=== PATIENT | female | born 1960 | race Caucasian/White ===

== ENCOUNTER 2018-08-11 00:22 | Emergency (ER) | payer OTHER, SELFPAY ==
[2018-08-11 00:25] VITALS: BP 128/85; PULSE 79; RESP 14; TEMP 36.8; O2SAT 98; BMI 19.8
--- NOTE | 2018-08-11 00:34 | DI.RAD.S_ITS ---
PROCEDURE: XR FOOT RT MIN 3V INDICATIONS: pain, swelling, ecchymosis over lateral foot TECHNIQUE: 3 views of the foot were acquired. COMPARISON: None. FINDINGS: Bones: There is an acute appearing fracture fragment seen adjacent to the cuboid laterally. No additional focal bony abnormality is seen. Age-appropriate bony degenerative changes are seen. No suspicious lytic or blastic lesions are seen. A plantar calcaneal spur is seen. Soft tissues: No tibiotalar joint effusion. Achilles tendon appears normal. IMPRESSION: Mildly displaced fracture of the cuboid. Please consider a dedicated CT for further evaluation. Note: No significant discrepancy from the preliminary report. Dictated by: Jose Cruz Martins M.D. on 08/11/2018 at 8:37 Approved by: Jose Cruz Martins M.D. on 08/11/2018 at 8:38
[2018-08-11 00:41] VITALS: PULSE 79
--- NOTE | 2018-08-11 00:47 | ED_ITS ---
HPI - Extremity Injury (Lower) General Chief Complaint: Extremity Injury, Lower Stated Complaint: Rt foot buckled under her she heard a snap Time Seen by Provider: 08/11/18 00:24 Source: patient and family Mode of arrival: wheelchair Limitations: no limitations History of Present Illness HPI Narrative: 57-year-old female nonsmoker with noncontributory medical history presents with her in the chief complaint right foot pain. Earlier tonight she states her foot fell asleep and when she stood up to walk she thinks she inverted that foot and she felt a pop and now has pain with ambulation. She was seen and evaluated by the system administration manager out on [facility] and placed in a splint, and encouraged to CS for evaluation. She did not fall and denies other injury as a consequence of this MD complaint: foot injury Onset (ago): hour(s) Type of Injury: inversion Place: home Severity: moderate Relieving factors: immobilization and rest Exacerbating factors: weight bearing and movement Context: walking Associated symptoms: snap/pop sensation and swelling Other symptoms: none Treatments prior to arrival: cold therapy, bandage and splint Review of Systems Constitutional Denies chills, Denies fever(s), Denies lethargy and Denies weakness Eyes Denies change in vision, Denies eye discharge, Denies irritation and Denies loss of vision ENT Ears, Nose, Mouth, and Throat: Denies change in voice, Denies neck pain and Denies sore throat Cardiovascular Denies chest pain, Denies irregular heart rhythm, Denies lightheadedness, Denies palpitations, Denies dyspnea, Denies dyspnea on exertion and Denies orthopnea Respiratory Denies cough, Denies dyspnea, Denies dyspnea on exertion and Denies wheezing Gastrointestinal Gastrointestinal: Denies abdominal pain, Denies change in bowel habits, Denies diarrhea, Denies nausea and Denies vomiting Genitourinary Denies hematuria, Denies flank pain, Denies urinary incontinence and Denies urinary urgency Musculoskeletal Reports limited range of motion and Denies neck pain Integumentary/Breasts Denies pruritus, Denies erythema, Denies rash and Denies wounds Neurologic Denies confusion, Denies loss of vision and Denies weakness Psychiatric Denies anxiety, Denies confusion, Denies depression, Denies homicidal ideation and Denies suicidal ideation Endocrine Denies palpitations Hematologic/Lymphatic Denies easy bruising Allergic/Immunologic Denies wheezing PFSH Social History Smoking Status: Never smoker Social History Smoking Status: Never smoker Exam Narrative Exam Narrative: GEN: AOx3 and in mild distress EYES: Pupils are equal, round, and reactive to light and accommodation. Extraoccular muscles are intact bilaterally. There is no subconjunctival hemorrhage or exudate. CHEST: Lungs are clear to auscultation bilaterally and free of wheezes, rales, or rhonchi. Heart rate is regular rhythm, there are no murmurs, clicks, rubs, or gallops. There is no chest wall tenderness. ABD: Abdomen is soft and nontender. There is no guarding or rebound. Bowel sounds are normal in all 4 quadrants. There is no mass or organomegaly. EXT: 2 x 3 cm area of swelling and ecchymosis on right lateral foot just medial to the 5th metatarsal. There is no pain or tenderness the lateral malleolus Full painless ROM of all extremities with no loss of sensation or strength. SKIN: Warm, pink, and dry. No erythema or rash Initial Vital Signs Initial Vital Signs: Vital Signs Temperature 98.2 F 08/11/18 00:25 Pulse Rate 79 08/11/18 00:25 Respiratory Rate 14 08/11/18 00:25 Blood Pressure 128/85 08/11/18 00:25 Pulse Oximetry 98 08/11/18 00:25 Procedures Orthopedic Splinting/Casting Injury #1: Side: right Lower Extremity Injury Location: foot Lower Extremity Immobilizer: posterior splint Other Orthopedic Equipment: crutches Post splinting neuro exam: intact Post splinting vascular exam: intact Placed by: Nursing Course Orders Ordered: ED Orders 08/11/18 00:34 XR foot RT min 3V Stat Reevaluation(s) Reevaluation #1: splint put back on patient Consultations Consultation #1: Dr. Resendez has reviewed images, recommends crutches, no weight bearing and follow up Vital Signs - 8 hr 08/11/18 00:25 08/11/18 00:41 Temperature 98.2 F Pulse Rate 79 Pulse Rate [Right Dorsalis Pedis] 79 Respiratory Rate 14 Blood Pressure 128/85 Pulse Oximetry 98 MDM - Extremity Injury (Lower) Imaging Data Foot Xray: Attestation: I personally reviewed and interpreted this imaging study as follows: My impression: avulsion fx R cuboid Discharge Plan Departure Patient Disposition: Home Clinical Impression: Avulsion fracture Foot sprain Qualifiers: Encounter type: initial encounter Laterality: right Qualified Code(s): S93.601A - Unspecified sprain of right foot, initial encounter Instructions: DI for Foot Fracture Activity Restrictions/Additional Instructions: *You have been diagnosed with [avulsion fracture cuboid bone in Right Foot] *What to do: *Take medications as directed *Follow up with [facility], call Monday for an appointment. Tell them you were in the Emergency Department and we spoke with the production broacher physician whom wants you seen in follow up. *Use crutches as directed. No weight-bearing *Return to ER if you should have any new, worsening or concerning symptoms Referrals: Manoj Resendez MD [Physician] -
[2018-08-11 01:05] VITALS: PULSE 72; RESP 18; O2SAT 98
== END 2018-08-11 01:05 | disposition home or self-care (01) ==
PROVIDERS: Emergency Provider Emergency Medicine
DX: S93.601A Unspecified sprain of right foot, initial encounter (principal)
CPT/HCPCS: 73630; 99282; 99283

== ENCOUNTER → 2022-05-24 09:16 | Outpatient (CLI) | payer OTHER, SELFPAY ==
[2022-05-27 13:10] LABS: Candida species Negative (Negative); Gardnerella vaginalis Positive (Negative); Trichomoas vaginalis Negative (Negative)
== END ==
PROVIDERS: PCP Physician Assistant; Visit Provider Physician Assistant
DX: N89.8 Other specified noninflammatory disorders of vagina (principal)
CPT/HCPCS: 87480; 87510; 87660

== ENCOUNTER → 2022-10-31 09:37 | Outpatient (CLI) | payer OTHER, SELFPAY ==
--- NOTE | 2022-10-31 09:39 | DI.MG.S_ITS ---
BILATERAL DIGITAL SCREENING MAMMOGRAM 3D/2D WITH CAD: 10/31/2022 CLINICAL: Routine screening. Comparison is made to exams dated: 04/16/2021 mammogram, 06/07/2018 mammogram, and 03/31/2016 mammogram - [facility]. Both breasts are heterogeneously dense, which may obscure small masses (category c / 51-75% glandular tissue). Current study was also evaluated with a Computer Aided Detection (CAD) system. There are benign calcifications in the right breast. No significant masses, calcifications, or other findings are seen in either breast. There has been no significant interval change. IMPRESSION: BENIGN There is no mammographic evidence of malignancy. A 1 year screening mammogram is recommended. Based on the Tyrer Cuzick model (a risk assessment model) the patient's lifetime risk is 10.8% and her 10 year risk is 4.9%. According to the ACR, ACS, and NCCN guidelines, an annual breast MRI exam along with mammogram is recommended if the patient's lifetime risk is 20% or greater. This exam was interpreted at Station ID: [id number]. NOTE: For mammograms, a report in lay terms will be sent to the patient. Approximately 15% of breast malignancies will not be visualized mammographically. In the management of a palpable breast mass, a negative mammogram must not discourage biopsy of a clinically suspicious lesion. Electronically Signed By: Mirtha [email or web address]:10/31/2022 09:54:56 letter sent: Normal Exam ACR BI-RADS Category 2: Benign Finding(s) 3342F
== END ==
PROVIDERS: PCP Physician Assistant; Referring Provider Physician Assistant; Visit Provider Physician Assistant
DX: Z12.31 Encounter for screening mammogram for malignant neoplasm of breast (principal)
CPT/HCPCS: 77063; 77067

== ENCOUNTER → 2023-09-18 09:50 | Outpatient (CLI) | payer OTHER, MEDICAID, SELFPAY | PROVIDERS: PCP Family Medicine; Visit Provider Family Medicine | DX: R39.89 Other symptoms and signs involving the genitourinary system (principal) | CPT/HCPCS: 87086 ==

== ENCOUNTER → 2023-12-18 11:14 | Outpatient (CLI) | payer OTHER, MEDICAID, SELFPAY ==
--- NOTE | 2023-12-18 11:15 | DI.RAD.S_ITS ---
PROCEDURE: XR DEXA AXIAL SKELETON INDICATIONS: postmenopausal COMPARISON: None. FINDINGS: Lumbar Spine (L4 excluded due to increased density): Bone mineral density 1.244 g/cm2, T score 1.7, normal. Left Hip: Bone mineral density 0.8 g/cm2, T score -1.2, osteopenia. Left Femoral Neck: Bone mineral density 0.728 g/cm2, T score -1.1, osteopenia. Right Hip: Bone mineral density 0.793 g/cm2, T score -1.2, osteopenia. Right Femoral Neck: Bone mineral density 0.670 g/cm2, T score -1.6, osteopenia. Fracture Risk Calculation (when applicable): 10-year fracture risk of a major osteoporotic fracture 8.0 percent and of a hip fracture 1.0 percent. (T score greater or equal to -1.0 to: NORMAL) (T score from -1.1 to -2.4: OSTEOPENIA) (T score less than or equal to -2.5: OSTEOPOROSIS) IMPRESSION: Osteopenia. Follow-up guidelines as follows: Osteoporosis: Consider a repeat DEXA and Vertebral Fracture Assessment (VFA) exam in 2 years or sooner if medically necessary, to reassess this patient's status. Osteopenia: Consider a repeat DEXA in 2-3 years to reassess this patient's status, or if there is a new clinical indication. Normal: Consider a repeat DEXA in 5 years or sooner, or if there is a new clinical indication. All treatment decisions require clinical judgment and consideration of individual patient factors, including patient preferences, comorbidities, previous drug use, risk factors not captured in the FRAX model (e.g., frailty, falls, vitamin D deficiency, increased bone turnover, interval significant decline in bone density ) and possible under- or over-estimation of fracture risk by FRAX. In addition, the NOF Guide recommends that FDA-approved medical therapies be considered in postmenopausal women and men age >= 50 years with a: * Hip or vertebral (clinical or morphometric) fracture * T-score of <=-2.5 at the spine or hip * Ten-year fracture probability by FRAX of >= 3% for hip fracture or >=20% for major osteoporotic fracture. People with diagnosed cases of osteoporosis or at high risk for fracture should have regular bone mineral density tests. For patients eligible for Medicare, routine testing is allowed once every 2 years. The testing frequency can be increased to one year for patients who have rapidly progressing disease, those who are receiving or discontinuing medical therapy to restore bone mass, or have additional risk factors. Dictated by: Refugio Morales M.D. on 12/18/2023 at 12:58 Approved by: Refugio Morales M.D. on 12/18/2023 at 12:59
--- NOTE | 2023-12-18 11:15 | DI.MG.S_ITS ---
BILATERAL DIGITAL SCREENING MAMMOGRAM 3D/2D WITH CAD: 12/18/2023 CLINICAL: Routine screening. Comparison is made to exams dated: 10/31/2022 mammogram - [facility], 04/16/2021 mammogram, 06/07/2018 mammogram, and 03/31/2016 mammogram - [facility]. The breasts are heterogeneously dense, which may obscure small masses (category c / 51-75% glandular tissue). Current study was also evaluated with a Computer Aided Detection (CAD) system. No significant masses, calcifications, or other findings are seen in either breast. There has been no significant interval change. IMPRESSION: NEGATIVE There is no mammographic evidence of malignancy. A 1 year screening mammogram is recommended. Based on the Tyrer Cuzick model (a risk assessment model) the patient's lifetime risk is 10.4% and her 10 year risk is 4.9%. According to the ACR, ACS, and NCCN guidelines, an annual breast MRI exam along with mammogram is recommended if the patient's lifetime risk is 20% or greater. This exam was interpreted at Station ID: [id number]. NOTE: For mammograms, a report in lay terms will be sent to the patient. Approximately 15% of breast malignancies will not be visualized mammographically. In the management of a palpable breast mass, a negative mammogram must not discourage biopsy of a clinically suspicious lesion. Electronically Signed By: Valencia Mishra M.D., Ph.D. [email or web address]:12/20/2023 10:03:43 letter sent: Normal Exam ACR BI-RADS Category 1: Negative
== END ==
PROVIDERS: PCP Family Medicine; Referring Provider Family Medicine; Visit Provider Family Medicine
DX: Z12.31 Encounter for screening mammogram for malignant neoplasm of breast (principal); R92.333 Mammographic heterogeneous density, bilateral breasts; M85.89 Other specified disorders of bone density and structure, multiple sites; Z78.0 Asymptomatic menopausal state; R29.890 Loss of height
CPT/HCPCS: 77063; 77067; 77080